=== PATIENT | male | born 1950 | race Caucasian/White ===

== ENCOUNTER 2017-01-20 18:37 | Emergency (ER) | payer MEDICARE, OTHER ==
[2017-01-20] MEDS ORDERED: NORMAL SALINE 1000 ML 1,000 ML IV ONE (19:28)
--- NOTE | 2017-01-20 19:29 | ER Document Report ---
ED Medical Screen (RME) - General Chief Complaint: Weakness Stated Complaint: WEAKNESS,VOMITING Time Seen by Provider: 01/20/17 19:28 Notes: Patient states that he had sudden onset today of shortness of breath nausea dizziness and began vomiting. He states he had several bouts of this. He states the last episode about 20 minutes ago. He states currently he is feeling somewhat better. He states it feels similar to a food poisoning he had about 5 months ago. TRAVEL OUTSIDE OF THE [place] IN LAST 30 DAYS: No - Related Data Allergies/Adverse Reactions: Penicillins Allergy (Mild, Verified 01/20/17 18:51) Hives Home Medications: Current Home Medications Cyproheptadine HCl 4 mg PO QPM 01/20/17 [History] Omeprazole Magnesium [Prilosec Otc] 20 mg PO DAILY 01/20/17 [History] Pravastatin Sodium 20 mg PO DAILY 01/20/17 [History] Rivaroxaban [Xarelto] 20 mg PO DAILY 01/20/17 [History] Tiotropium Br/Olodaterol HCl [Stiolto Respimat Inhal [place]] 2 puff IH QAM [History] Past Medical History - Social History Chew tobacco use (# tins/day): No Frequency of alcohol use: None Drug Abuse: None - Past Medical History Cardiac Medical History: Reports: Hx Hypertension - medicated Denies: Hx Heart Attack Pulmonary Medical History: Denies: Hx Asthma Neurological Medical History: Denies: Hx Cerebrovascular Accident, Hx Seizures Renal/ Medical History: Denies: Hx Peritoneal Dialysis GI Medical History: Reports: Hx Hepatitis - hep a 1986. Denies: Hx Hiatal Hernia, Hx Ulcer Infectious Medical History: Reports: Hx Hepatitis - hep a 1986 Past Surgical History: Denies: Hx Open Heart Surgery, Hx Pacemaker Physical Exam - Vital signs Vitals: Temp Pulse Resp BP Pulse Ox 97.6 F 71 24 H 147/80 H 96 01/20/17 18:48 01/20/17 18:48 01/20/17 18:48 01/20/17 18:48 01/20/17 18:48 Course - Vital Signs Vital signs: Temp Pulse Resp BP Pulse Ox 97.6 F 71 24 H 147/80 H 96 01/20/17 18:48 01/20/17 18:48 01/20/17 18:48 01/20/17 18:48 01/20/17 18:48
--- NOTE | 2017-01-20 20:01 | RADIOLOGY REPORT (SQ) ---
EXAM DESCRIPTION: CHEST PA/LAT COMPLETED DATE/TIME: 01/20/2017 7:52 pm REASON FOR STUDY: sob COMPARISON: None. EXAM PARAMETERS: NUMBER OF VIEWS: two views TECHNIQUE: Digital Frontal and Lateral radiographic views of the chest acquired. RADIATION DOSE: NA LIMITATIONS: none FINDINGS: LUNGS AND PLEURA: Bibasilar opacities. No effusions. No pneumothorax. MEDIASTINUM AND HILAR STRUCTURES: No masses or contour abnormalities. HEART AND VASCULAR STRUCTURES: Heart normal size. No evidence for failure. BONES: No acute findings. HARDWARE: None in the chest. OTHER: No other significant finding. IMPRESSION: Bibasilar atelectasis/ pneumonia. TECHNICAL DOCUMENTATION: JOB ID: [id number] [employer]- All Rights Reserved
[2017-01-20 20:29] LABS: ABSOLUTE LYMPHOCYTES (AUTO) 1.3 10^3/uL (0.5-4.7); ABSOLUTE MONOCYTES (AUTO) 0.6 10^3/uL (0.1-1.4); ABSOLUTE NEUT (AUTO) 6.2 10^3/uL (1.7-8.2); BASOPHILS % (AUTO) 0.3 % (0-2); EOSINOPHILS % (AUTO) 0.5 % (0-6); HEMATOCRIT 40.4 % (37.9-51.0); HEMOGLOBIN 13.9 g/dL (13.5-17.0); HGB HCT DIFFERENCE 1.3; LYMPHOCYTES % (AUTO) 15.5 % (13-45); MEAN CORPUSCULAR HEMOGLOBIN 32.5 pg (27.0-33.4); MEAN CORPUSCULAR HGB CONC 34.4 g/dL (32.0-36.0); MEAN CORPUSCULAR VOLUME 95 fl (80-97); MONOCYTES % (AUTO) 7.6 % (3-13); RED BLOOD COUNT 4.27 10^6/uL (4.35-5.55); RED CELL DISTRIBUTION WIDTH 13.6 % (11.5-14.0); SEGMENTED NEUTROPHILS % (AUTO) 76.1 % (42-78); WHITE BLOOD COUNT 8.2 10^3/uL (4.0-10.5)
[2017-01-20] MEDS ORDERED: ONDANSETRON HCL INJ/PF 4 MG/2 ML SDV IV ONE (20:46)
[2017-01-20 20:52] LABS: ALANINE AMINOTRANSFERASE 79 U/L (21-72); ALKALINE PHOSPHATASE 76 U/L (38-126); ANION GAP 15 (5-19); ASPARTATE AMINO TRANSFERASE 40 U/L (17-59); BILIRUBIN,DIRECT 0.3 mg/dL (0.0-0.4); BILIRUBIN,TOTAL 0.5 mg/dL (0.2-1.3); BLOOD UREA NITROGEN 12 mg/dL (7-20); CALCIUM 9.5 mg/dL (8.4-10.2); CARBON DIOXIDE 27 mmol/L (22-30); CHLORIDE 103 mmol/L (98-107); CREATININE RESULT 0.77 mg/dL (0.52-1.25); GLUCOSE 106 mg/dL (75-110); POTASSIUM 4.5 mmol/L (3.6-5.0); SODIUM 145.2 mmol/L (137-145); TOTAL PROTEIN 7.4 g/dL (6.3-8.2)
[2017-01-20 22:14] VITALS: BP 160/70
--- NOTE | 2017-01-20 22:14 | ER Document Report ---
ED General - General Chief Complaint: Weakness Stated Complaint: WEAKNESS,VOMITING Time Seen by Provider: 01/20/17 19:28 Notes: Patient is a 66-year-old male with a past medical history of pulmonary embolus, hypertension, hyperlipidemia who presents with acute onset of nausea, vomiting and diaphoresis approximately 20-30 minutes after eating an ice cream cone. Patient states that shortly after eating ice cream from a [employer] he began to experience some upset stomach. He states that he began to feel extremely nauseated, had several episodes of dry heaving and then one episode of nonbilious vomiting. He states that EMS was contacted and brought him here to the hospital. He had one additional episode of vomiting while in the waiting room and states after that he had resolution of his symptoms. He now denies any complaints. When symptoms are present he denied any associated shortness of breath or chest pain. He denied any localized abdominal pain. Patient states that he has had very similar symptoms in the past during episodes of indigestion or vomiting. States the symptoms did resolve spontaneously without any medical intervention. He is requesting to leave when I come into the room to assess him. TRAVEL OUTSIDE OF THE [place] IN LAST 30 DAYS: No - Related Data Allergies/Adverse Reactions: Penicillins Allergy (Mild, Verified 01/20/17 18:51) Hives Home Medications: Current Home Medications Omeprazole Magnesium [Prilosec Otc] 20 mg PO DAILY 01/20/17 [History] RX: Cyproheptadine HCl 4 mg PO QPM 01/20/17 [History] RX: Pravastatin Sodium 20 mg PO DAILY 01/20/17 [History] Rivaroxaban [Xarelto] 20 mg PO DAILY 01/20/17 [History] Tiotropium Br/Olodaterol HCl [Stiolto Respimat Inhal [place]] 2 puff IH QAM [History] Past Medical History - General Information source: Patient - Social History Smoking Status: Former Smoker Chew tobacco use (# tins/day): No Frequency of alcohol use: None Drug Abuse: None Lives with: Spouse/Significant other Family History: Reviewed & Not Pertinent Patient has suicidal ideation: No Patient has homicidal ideation: No - Past Medical History Cardiac Medical History: Reports: Hx Hypercholesterolemia, Hx Hypertension - medicated Denies: Hx Heart Attack Pulmonary Medical History: Reports: Hx Pneumonia Denies: Hx Asthma Neurological Medical History: Denies: Hx Cerebrovascular Accident, Hx Seizures Renal/ Medical History: Denies: Hx Peritoneal Dialysis GI Medical History: Reports: Hx Hepatitis - hep a 1986. Denies: Hx Hiatal Hernia, Hx Ulcer Infectious Medical History: Reports: Hx Hepatitis - hep a 1986 Past Surgical History: Denies: Hx Open Heart Surgery, Hx Pacemaker - Immunizations Hx Diphtheria, Pertussis, Tetanus Vaccination: No Review of Systems - Review of Systems Notes: Constitutional: Negative for fever. HENT: Negative for sore throat. Eyes: Negative for visual changes. Cardiovascular: Negative for chest pain. Respiratory: Negative for shortness of breath. Gastrointestinal: Negative for abdominal pain, positive for vomiting Genitourinary: Negative for dysuria. Musculoskeletal: Negative for back pain. Skin: Negative for rash. Neurological: Negative for headaches, weakness or numbness. 10 point ROS negative except as marked above and in HPI. Physical Exam - Vital signs Vitals: Temp Pulse Resp BP Pulse Ox 97.6 F 71 24 H 147/80 H 96 01/20/17 18:48 01/20/17 18:48 01/20/17 18:48 01/20/17 18:48 01/20/17 18:48 Interpretation: Normal Notes: PHYSICAL EXAMINATION: GENERAL: Well-appearing, well-nourished and in no acute distress. HEAD: Atraumatic, normocephalic. EYES: Pupils equal round and reactive to light, extraocular movements intact, sclera anicteric, conjunctiva are normal. ENT: nares patent, oropharynx clear without exudates. Moist mucous membranes. NECK: Normal range of motion, supple without lymphadenopathy LUNGS: Breath sounds clear to auscultation bilaterally and equal. No wheezes rales or rhonchi. HEART: Regular rate and rhythm without murmurs ABDOMEN: Soft, nontender, normoactive bowel sounds. No guarding, no rebound. No masses appreciated. EXTREMITIES: Normal range of motion, no pitting or edema. No cyanosis. NEUROLOGICAL: No focal neurological deficits. Moves all extremities spontaneously and on command. PSYCH: Normal mood, normal affect. SKIN: Warm, Dry, normal turgor, no rashes or lesions noted. Course - Re-evaluation Re-evalutation: 01/20/17 22:09 Patient presents with symptoms most consistent with likely acute food poisoning as he developed nausea and vomiting with associated diaphoresis shortly after eating a ice cream. Patient is completely asymptomatic at time of my initial assessment, laughing and joking with me and his at the bedside. As soon as I walked into the room and ask how I can help the patient today he states "you can take his IV out and get me home because I feel just fine". His abdominal exam is completely benign without any focal tenderness particularly the right upper quadrant or epigastrium to suggest an acute pancreatitis or biliary pathology. Patient denies any chest pain or shortness of breath during the episode itself in his clinical history does not suggest an acute cardiac or pulmonary pathology. Troponin and EKG are normal. CXR has bibasilar atelectasis. He has tolerated oral intake without difficulty. - Vital Signs Vital signs: Temp Pulse Resp BP Pulse Ox 97.6 F 61 16 160/70 H 99 01/20/17 18:48 01/20/17 22:12 01/20/17 22:12 01/20/17 22:12 01/20/17 22:12 - Laboratory Result Diagrams: 01/20/17 20:15 01/20/17 20:15 Laboratory results interpreted by me: 01/20/17 01/20/17 20:15 20:15 RBC 4.27 L Sodium 145.2 H ALT 79 H - Diagnostic Test Radiology reviewed: Image reviewed, Reports reviewed Radiology results interpreted by me: 01/20/17 22:13 Chest x-ray: Bibasilar atelectasis. No acute infiltrate - EKG Interpretation by Me Additional EKG results interpreted by me: 01/20/17 22:13 Normal sinus rhythm. Rate 70. No ST elevations or depressions. QTC is 445. Discharge - Discharge Clinical Impression: Nausea and vomiting Qualifiers: Vomiting type: unspecified Vomiting Intractability: non-intractable Qualified Code(s): R11.2 - Nausea with vomiting, unspecified Condition: Good Disposition: HOME, SELF-CARE Additional Instructions: You have been seen in the Emergency Department (ED) today for nausea and vomiting. Your work up today has not shown a clear cause for your symptoms. Follow up with your doctor as soon as possible regarding today's emergent visit and your symptoms of nausea. Return to the Emergency Department (ED) if you develop abdominal pain, bloody vomiting, bloody diarrhea, if you are unable to tolerate fluids due to vomiting , or if you develop other symptoms that concern you. Referrals: TAMAR MCCLAIN MD [Primary Care Provider] - Follow up as needed
--- NOTE | 2017-01-21 09:33 | EKG REPORT ---
SEVERITY:- NORMAL ECG - SINUS RHYTHM : Confirmed by: Latrice Trujillo 21-Jan-2017 09:33:09
== END 2017-01-20 22:24 | disposition home or self-care (01) ==
LOC: ER 18:37
DX: R11.2 Nausea with vomiting, unspecified (principal); R53.1 Weakness; I10 Essential (primary) hypertension; E78.5 Hyperlipidemia, unspecified; R61 Generalized hyperhidrosis; Z86.711 Personal history of pulmonary embolism; Z79.899 Other long term (current) drug therapy
CPT/HCPCS: 93005; 99285; 36415; 85025; 80053; 84484; 71020; 93010; J2405; J7030